=== PATIENT | female | born 1945 | race Caucasian/White ===

== ENCOUNTER → 2017-04-23 | Outpatient (CLI) | payer OTHER ==
--- NOTE | 2017-04-26 17:05 | PCVCIMAG ---
APPROVED REPORT Exam: Stress Echocardiogram Indication: CAD , Hypertension, Hyperlipidemia, Chest Pressure Patient Location: Echo lab Stress Nurse: Andreea Mir RN Status: routine Ht: 5 ft 2 in HR: 76 bpm BP: 138/78 mmHg Rhythm: NSR Procedure The patient underwent an Exercise Stress Test using the Owen Protocol. Blood pressure, heart rate, and EKG were monitored. An Echocardiogram was performed by composite technician in four stages in quad fashion. At peak stress, four selected images were obtained and placed side by side with resting images for comparison. Stress Test Details Stress Test: Exercise stress testing was performed using a Owen protocol. HR Resting HR: 76 bpmMax Heart Rate (APMHR): 146 bpm Max HR Achieved: 176 bpmTarget HR (85% APMHR): 124 bpm % of APMHR: 120 Recovery HR: 100 bpm HR response to stress: Normal HR response to stress BP Resting BP: 138/78 mmHg Max BP: 152/78 mmHg Recovery BP: 112/78 mmHg ECG Resting ECG: Sinus Rhythm Stress ECG: Sinus Rhythm Arrhythmia: Occasional VPC's at rest and with exercise Recovery ECG: Sinus Rhythm Clinical Reason for Termination: Maximal effort Exercise duration: 10 min 51 sec Highest Stage Achieved: Stage 4: 4.2 mph at 16% grade. Exercise capacity: 13.40 METs Overall Exercise Capacity for Age: Good Stress ECG Conclusion The patient exercised according to the OWEN protocol for 10:51 mins, achieving a work level of Max METS 13.40. The resting heart rate of 76 bpm micaela to a maximal heart rate of 176 bpm. This represents 120% of the maximal age-predicted heart rate. The resting blood pressure of 138/78 mmHg micaela to a maximum blood pressure of 152/78 mmHg. The exercise test was stopped due to maximal effort reached and fatigue. Pre-Stress Echo The resting Echocardiogram showed normal left ventricular contractility with an estimated Ejection Fraction of about >55%. Normal wall motion in all segments on baseline images. Post-Stress Echo The stress Echocardiogram showed normal left ventricular contractility with an estimated Ejection Fraction of about 60-65%. Normal augmentation of wall motion in all segments on post stress images. Clinical No clinical or ECG evidence for ischemia. Conclusion Clinical Response: Non-ischemic Exercise Capacity: Superior Stress ECG Response: Non-ischemic Stress Echo Images: Non-ischemic The left ventricle is normal in size and wall thickness in both the rest and stress images. Other Information Study Quality: Adequate <Conclusion> The left ventricle is normal in size and wall thickness in both the rest and stress images.
== END | disposition home or self-care (01) ==
LOC: PCVCIMAG 15:13
PROVIDERS: ATTEND Internal Medicine Cardiovascular Disease
DX: I25.10 Atherosclerotic heart disease of native coronary artery without angina pectoris (principal); I10 Essential (primary) hypertension; E78.5 Hyperlipidemia, unspecified; R07.89 Other chest pain; Z72.0 Tobacco use
CPT/HCPCS: 93325; 93351

== ENCOUNTER → 2018-02-01 | Outpatient (CLI) | payer OTHER | END | disposition home or self-care (01) | LOC: PCVCCLINIC 11:02 | PROVIDERS: ATTEND Internal Medicine Cardiovascular Disease | DX: I25.10 Atherosclerotic heart disease of native coronary artery without angina pectoris (principal); I95.1 Orthostatic hypotension; E78.00 Pure hypercholesterolemia, unspecified; K21.9 Gastro-esophageal reflux disease without esophagitis; J44.9 Chronic obstructive pulmonary disease, unspecified; I73.00 Raynaud's syndrome without gangrene; R94.31 Abnormal electrocardiogram [ECG] [EKG]; F10.10 Alcohol abuse, uncomplicated; Z87.891 Personal history of nicotine dependence; Z79.82 Long term (current) use of aspirin; Z79.899 Other long term (current) drug therapy | CPT/HCPCS: 80061; 93005; G0463 ==

== ENCOUNTER → 2018-10-06 | Outpatient (CLI) | payer OTHER ==
--- NOTE | 2018-10-14 14:37 | PCVCIMAG ---
APPROVED REPORT Patient Location: Echo lab - TREADMI[facility] STRESS TEST Room #: 2 Stress Nurse: Noa Alvarez RN INDICATIONS: Hx CAD, lightheadedness with exertion,movement, Borderline low blood pressure The patient exercised according to the ANGELO protocol for 10:00 mins; achieving a work level of 13.4 METS. The resting heart rate of 94 bpm micaela to a maximum heart rate of 164 bpm. This value represent 113% of the maximal, age-predicted heart rate. The resting blood pressure of 102/66 mmHg, micaela to a maximum blood pressure of 146/60 mmHg. The exercise test was stopped due to fatigue. Occasional PVCs were seen during exercise. Conclusion #1 patient associated fatigue and shortness of breath no reproduction of chest pain or angina #2 no diagnostic EKG changes consistent with ischemia occasional PVCs were noted. 3 good exercise tolerance an appropriate hemodynamic response. Impression: Negative treadmill stress test for ischemia or significant ectopy.
== END | disposition home or self-care (01) ==
LOC: PCVCIMAG 11:27
PROVIDERS: ATTEND Internal Medicine Cardiovascular Disease
DX: R42 Dizziness and giddiness (principal)
CPT/HCPCS: 93017